=== PATIENT | female | born 1930 | race African-American/Black ===

== ENCOUNTER 2016-12-26 23:53 | Inpatient (IN) | payer BC ==
[~2016-12-26] VITALS: Ht 152.4 cm; Wt 82.1 kg
[2016-12-27] VITALS (7 sets, daily range): BP systolic 141–159; BP diastolic 66–77
[2016-12-27 00:20] LABS: EOSINOPHIL (%) 1.1 % (0-5); EOSINOPHIL COUNT 0.2 K/uL (0-0.3); HEMATOCRIT 30.4 % (36.0-46.0); IMMATURE GRANULOCYTE (%) 1.7 % (0.0-0.7); IMMATURE GRANULOCYTE COUNT 0.3 K/uL; INSTRUMENT ABS NEUTROPHIL CT 11.1 K/uL; LYMPHOCYTE COUNT 3.9 K/uL (1.0-2.8); MCH 31.1 PG (29.0-34.0); MCHC 32.9 G/DL (30.0-36.0); MCV 94.4 FL (83-99); MEAN PLAT.VOLUME 10.4 uM^3 (9.5-12.4); MONOCYTE (%) 4.5 % (3-12); MONOCYTE COUNT 0.7 K/uL (0-0.8); NEUTROPHIL (%) 68.7 % (45-76); NEUTROPHIL COUNT 11.1 K/uL (1.8-6.4); PLATELET COUNT 308 K/uL (156-360); RBC DIS.WIDTH-CV 12.4 % (11.8-14.6); RBC DIS.WIDTH-SD 42.6 % (39-53); RED BLOOD COUNT 3.22 M/uL (3.80-5.20); WHITE BLOOD COUNT 16.2 K/uL (4.1-10.2)
[2016-12-27 00:28] LABS: AMYLASE 70 IU/L (1-118); CHLORIDE 104 mEq/L (99-109); POTASSIUM 4.1 mEq/L (3.7-5.4); SODIUM 143 mEq/L (136-147)
[2016-12-27 00:30] LABS: GLUCOSE 133 mg/dL (70-99)
[2016-12-27 00:31] LABS: ANION GAP 11 MEQ/L (2-14)
[2016-12-27 00:33] LABS: SERUM ETHYL ALCOHOL < 10 mg/dL
[2016-12-27 00:34] LABS: UREA NITROGEN (BUN) 21 mg/dL (9-23)
[2016-12-27 00:36] LABS: GFR ESTIMATE (CALCULATED) 25 mL/min/; LIPASE 21 U/L (1.0-51.0)
[2016-12-27 00:56] LABS: PROTHROMBIN TIME 11.3 SEC (10.2-12.9)
[2016-12-27 00:59] LABS: PTT 28.9 SEC (25-37)
[2016-12-27 13:49] LABS: ANION GAP 10 MEQ/L (2-14); CHLORIDE 106 MEQ/L (99-109); GFR ESTIMATE (CALCULATED) 37 mL/min/; GLUCOSE 126 mg/dL (70-99); SAMPLE HEMOLYSIS CHECK 0; SAMPLE ICTERIC CHECK 0; SAMPLE LIPEMIA CHECK 0; SODIUM 143 MEQ/L (136-147); UREA NITROGEN (BUN) 18 mg/dL (9-23)
[2016-12-27 15:36] LABS: ADD MIUA? YES; BILIRUBIN NEGATIVE; BLOOD SMALL; COLOR YELLOW ((YELLOW)); GLUCOSE (STRIP) NEGATIVE; KETONES NEGATIVE; LEUKOCYTES SMALL; NITRITE NEGATIVE; PROTEIN (STRIP) NEGATIVE; SPECIFIC GRAVITY 1.027 (1.000-1.030); UROBILINOGEN 0.2 MG/DL (0.2-1.0)
[2016-12-27 15:52] LABS: BACTERIA 3+ /HPF; EPITHELIAL CELLS RARE /HPF; MUCUS NONE SEEN /LPF; UCUL ADDED? YES; WHITE BLOOD CELLS 30-40 /HPF (0-5); WHITE BLOOD CELLS CLUMP RARE /HPF (0-5)
[2016-12-27 16:08] LABS: HEMATOCRIT 32.3 % (36.0-46.0); MCH 31.4 PG (29.0-34.0); MCHC 33.4 G/DL (30.0-36.0); MCV 93.9 FL (83-99); RBC DIS.WIDTH-CV 12.7 % (11.8-14.6); RBC DIS.WIDTH-SD 43.5 % (39-53); RED BLOOD COUNT 3.44 M/uL (3.80-5.20); WHITE BLOOD COUNT 13.5 K/uL (4.1-10.2)
[2016-12-27 16:39] LABS: MEAN PLAT.VOLUME 11.5 uM^3 (9.5-12.4); PLAT.SUFFICIENCY ADEQUATE
[2016-12-27 16:44] LABS: PLATELET COUNT 206 K/uL (156-360)
[2016-12-27] MEDS ORDERED: COZAAR25 MG PO (17:58)
[2016-12-27] MEDS ORDERED: KLONOPIN0.5 M1 PO (18:00)
[2016-12-27] MEDS ORDERED: SIMVASTATIN20 MG PO (18:00)
[2016-12-27] MEDS ORDERED: VERAPAMIL HCL240 MG PO (18:01)
[2016-12-27] MEDS ORDERED: HYDROCHLOROTHIA25 MG PO (18:02)
[2016-12-27] MEDS ORDERED: HYDROCODON-ACE1 EAC7 PO (18:03)
[2016-12-27] MEDS ORDERED: LEVOTHYROXINE50 MCG PO (18:04)
[2016-12-28 02:55] VITALS: BP 152/70
[2016-12-28 07:02] LABS: EOSINOPHIL (%) 1.5 % (0-5); EOSINOPHIL COUNT 0.2 K/uL (0-0.3); HEMATOCRIT 26.5 % (36.0-46.0); IMMATURE GRANULOCYTE (%) 0.3 % (0.0-0.7); INSTRUMENT ABS NEUTROPHIL CT 7.8 K/uL; LYMPHOCYTE COUNT 1.5 K/uL (1.0-2.8); MCH 31.5 PG (29.0-34.0); MCHC 33.2 G/DL (30.0-36.0); MEAN PLAT.VOLUME 10.9 uM^3 (9.5-12.4); MONOCYTE (%) 7.6 % (3-12); MONOCYTE COUNT 0.8 K/uL (0-0.8); NEUTROPHIL (%) 75.5 % (45-76); NEUTROPHIL COUNT 7.8 K/uL (1.8-6.4); PLATELET COUNT 234 K/uL (156-360); RBC DIS.WIDTH-CV 12.7 % (11.8-14.6); RBC DIS.WIDTH-SD 43.8 % (39-53); RED BLOOD COUNT 2.79 M/uL (3.80-5.20); WHITE BLOOD COUNT 10.3 K/uL (4.1-10.2)
[2016-12-28 07:12] LABS: ALKALINE PHOSPHATASE 68 IU/L (3-129); ANION GAP 6 MEQ/L (2-14); CHLORIDE 108 MEQ/L (99-109); GFR ESTIMATE (CALCULATED) 40 mL/min/; GLUCOSE 97 mg/dL (70-99); POTASSIUM 3.8 MEQ/L (3.7-5.4); SAMPLE HEMOLYSIS CHECK 0; SAMPLE ICTERIC CHECK 0; SAMPLE LIPEMIA CHECK 0; SODIUM 144 MEQ/L (136-147); TOTAL BILIRUBIN 0.3 MG/DL (0.0-1.0); UREA NITROGEN (BUN) 14 mg/dL (9-23)
[2016-12-28 07:45] VITALS: BP 162/73
[2016-12-28 11:36] VITALS: BP 158/76
[2016-12-28 15:35] VITALS: BP 158/76
[2016-12-28 22:02] VITALS: BP 163/70
[2016-12-28 23:40] VITALS: BP 155/72
[2016-12-29 04:19] VITALS: BP 171/84
[2016-12-29 07:02] LABS: EOSINOPHIL (%) 0.4 % (0-5); EOSINOPHIL COUNT 0.1 K/uL (0-0.3); HEMATOCRIT 26.6 % (36.0-46.0); IMMATURE GRANULOCYTE (%) 0.5 % (0.0-0.7); IMMATURE GRANULOCYTE COUNT 0.1 K/uL; INSTRUMENT ABS NEUTROPHIL CT 10.9 K/uL; LYMPHOCYTE COUNT 1.4 K/uL (1.0-2.8); MCH 31.5 PG (29.0-34.0); MCHC 32.7 G/DL (30.0-36.0); MCV 96.4 FL (83-99); MONOCYTE (%) 6.9 % (3-12); MONOCYTE COUNT 0.9 K/uL (0-0.8); NEUTROPHIL (%) 81.5 % (45-76); NEUTROPHIL COUNT 10.9 K/uL (1.8-6.4); PLATELET COUNT 226 K/uL (156-360); RBC DIS.WIDTH-CV 12.7 % (11.8-14.6); RBC DIS.WIDTH-SD 43.8 % (39-53); RED BLOOD COUNT 2.76 M/uL (3.80-5.20); WHITE BLOOD COUNT 13.4 K/uL (4.1-10.2)
[2016-12-29 07:31] LABS: ANION GAP 11 MEQ/L (2-14); CHLORIDE 110 MEQ/L (99-109); GFR ESTIMATE (CALCULATED) 46 mL/min/; GLUCOSE 98 mg/dL (70-99); POTASSIUM 3.9 MEQ/L (3.7-5.4); SAMPLE HEMOLYSIS CHECK 0; SAMPLE ICTERIC CHECK 0; SAMPLE LIPEMIA CHECK 0; SODIUM 146 MEQ/L (136-147); UREA NITROGEN (BUN) 13 mg/dL (9-23)
[2016-12-29] MEDS ORDERED: REQUIP1 MG PO (11:46)
[2016-12-29 12:30] VITALS: BP 164/73
[2016-12-29 16:42] VITALS: BP 177/78
[2016-12-29 19:24] VITALS: BP 155/67
[2016-12-29 23:14] VITALS: BP 148/64
[2016-12-30 03:40] VITALS: BP 127/68
[2016-12-30 07:37] VITALS: BP 139/63
[2016-12-30 07:46] LABS: HEMATOCRIT 26.4 % (36.0-46.0); MCH 32.1 PG (29.0-34.0); MCHC 33.7 G/DL (30.0-36.0); MCV 95.3 FL (83-99); MEAN PLAT.VOLUME 11.1 uM^3 (9.5-12.4); PLATELET COUNT 235 K/uL (156-360); RBC DIS.WIDTH-CV 12.8 % (11.8-14.6); RBC DIS.WIDTH-SD 44.1 % (39-53); RED BLOOD COUNT 2.77 M/uL (3.80-5.20); WHITE BLOOD COUNT 13.9 K/uL (4.1-10.2)
[2016-12-30 07:52] LABS: ALKALINE PHOSPHATASE 66 IU/L (3-129); ANION GAP 10 MEQ/L (2-14); CHLORIDE 107 MEQ/L (99-109); GFR ESTIMATE (CALCULATED) 50 mL/min/; GLUCOSE 124 mg/dL (70-99); SAMPLE HEMOLYSIS CHECK 0; SAMPLE ICTERIC CHECK 0; SAMPLE LIPEMIA CHECK 0; SODIUM 143 MEQ/L (136-147); UREA NITROGEN (BUN) 14 mg/dL (9-23)
[2016-12-30 07:54] LABS: TOTAL BILIRUBIN 0.4 MG/DL (0.0-1.0)
[2016-12-30 11:05] VITALS: BP 134/67
[2016-12-30 16:14] VITALS: BP 142/65
[2016-12-30 19:38] VITALS: BP 175/78
[2016-12-30 23:42] VITALS: BP 171/73
[2016-12-31 04:38] VITALS: BP 144/68
[2016-12-31 07:15] LABS: ANION GAP 8 MEQ/L (2-14); CHLORIDE 105 MEQ/L (99-109); GFR ESTIMATE (CALCULATED) 50 mL/min/; GLUCOSE 118 mg/dL (70-99); POTASSIUM 4.2 MEQ/L (3.7-5.4); SAMPLE HEMOLYSIS CHECK 0; SAMPLE ICTERIC CHECK 0; SAMPLE LIPEMIA CHECK 0; SODIUM 141 MEQ/L (136-147); UREA NITROGEN (BUN) 17 mg/dL (9-23)
[2016-12-31 08:33] VITALS: BP 151/71
[2016-12-31 11:44] VITALS: BP 160/73
[2016-12-31 17:05] VITALS: BP 151/62
[2016-12-31 20:11] VITALS: BP 165/73
[2017-01-01 00:07] VITALS: BP 147/65
[2017-01-01 03:07] VITALS: BP 146/67
[2017-01-01 07:18] VITALS: BP 135/63
[2017-01-01 10:59] VITALS: BP 152/70
[2017-01-01 15:23] VITALS: BP 140/62
[2017-01-01 18:55] VITALS: BP 148/68
[2017-01-02] VITALS (7 sets, daily range): BP systolic 145–191; BP diastolic 69–78
[2017-01-03] VITALS (7 sets, daily range): BP systolic 137–190; BP diastolic 56–85
[2017-01-03 13:17] LABS: ALKALINE PHOSPHATASE 75 IU/L (3-129); ANION GAP 11 MEQ/L (2-14); CHLORIDE 101 MEQ/L (99-109); GFR ESTIMATE (CALCULATED) 50 mL/min/; GLUCOSE 123 mg/dL (70-99); MAGNESIUM 1.8 mg/dl (1.3-2.7); SAMPLE HEMOLYSIS CHECK 0; SAMPLE ICTERIC CHECK 0; SAMPLE LIPEMIA CHECK 0; SODIUM 141 MEQ/L (136-147); UREA NITROGEN (BUN) 23 mg/dL (9-23)
[2017-01-03 13:18] LABS: BASOPHIL COUNT 0.1 K/uL (0-0.1); EOSINOPHIL (%) 2.2 % (0-5); EOSINOPHIL COUNT 0.3 K/uL (0-0.3); IMMATURE GRANULOCYTE (%) 1.5 % (0.0-0.7); IMMATURE GRANULOCYTE COUNT 0.2 K/uL; INSTRUMENT ABS NEUTROPHIL CT 9.9 K/uL; LYMPHOCYTE COUNT 2.2 K/uL (1.0-2.8); MCH 31.5 PG (29.0-34.0); MCHC 33.3 G/DL (30.0-36.0); MCV 94.4 FL (83-99); MEAN PLAT.VOLUME 9.8 uM^3 (9.5-12.4); MONOCYTE (%) 8.6 % (3-12); MONOCYTE COUNT 1.2 K/uL (0-0.8); NEUTROPHIL (%) 71.2 % (45-76); NEUTROPHIL COUNT 9.9 K/uL (1.8-6.4); NRBC (%) 0.1 /100 WBC (0-0); PLATELET COUNT 410 K/uL (156-360); RBC DIS.WIDTH-CV 13.1 % (11.8-14.6); RBC DIS.WIDTH-SD 44.2 % (39-53); RED BLOOD COUNT 2.86 M/uL (3.80-5.20); WHITE BLOOD COUNT 13.9 K/uL (4.1-10.2)
[2017-01-03 13:22] LABS: TOTAL BILIRUBIN 0.7 MG/DL (0.0-1.0)
[2017-01-04 04:01] VITALS: BP 165/72
[2017-01-04 07:05] VITALS: BP 160/74
[2017-01-04 11:12] VITALS: BP 177/79
[2017-01-04 15:06] VITALS: BP 169/77
[2017-01-04 19:17] VITALS: BP 152/69
[2017-01-04 23:46] VITALS: BP 137/62
[2017-01-05 03:05] LABS: ADD MIUA? YES; BILIRUBIN NEGATIVE; BLOOD MODERATE; COLOR YELLOW ((YELLOW)); GLUCOSE (STRIP) NEGATIVE; KETONES NEGATIVE; LEUKOCYTES LARGE; NITRITE POSITIVE; PROTEIN (STRIP) 100; SPECIFIC GRAVITY 1.011 (1.000-1.030); UROBILINOGEN 0.2 MG/DL (0.2-1.0)
[2017-01-05 03:20] LABS: BACTERIA 2+ /HPF; CASTS NONE SEEN /LPF; CRYSTALS NONE SEEN; EPITHELIAL CELLS NONE SEEN /HPF; MUCUS NONE SEEN /LPF; WHITE BLOOD CELLS TNTC /HPF (0-5)
[2017-01-05 03:42] VITALS: BP 156/67
[2017-01-05 07:14] VITALS: BP 161/73
[2017-01-05 09:40] LABS: POC NON-PRINT COM 1 ND
[2017-01-05 11:12] VITALS: BP 132/63
[2017-01-05 15:04] VITALS: BP 133/60
[2017-01-05 19:39] VITALS: BP 174/74
[2017-01-05 23:26] VITALS: BP 119/60
[2017-01-06 04:41] VITALS: BP 136/60
[2017-01-06 07:47] VITALS: BP 136/63
[2017-01-06] MEDS ORDERED: PERCOCET 5/31 TABLET PO (10:17)
[2017-01-06 11:58] VITALS: BP 159/63
[2017-01-06] MEDS ORDERED: CIPROFLOXACIN500 M1 PO (13:09)
== END 2017-01-06 13:40 | DRG 958 ==
LOC: TRA 23:53 → EDOF 12-27 02:14 → 3EAST 12-27 02:14 → ENRESERV 12-27 02:16 → 3EAST 12-27 03:02
PROVIDERS: Emergency Medicine; Hospitalist; Physician Assistant Medical; Surgery
PROC: 0PS304Z Reposition Cervical Vertebra with Internal Fixation Device, Open Approach (ICD-10-PCS; principal; 2016-12-28)
DX: S12.110A Anterior displaced Type II dens fracture, initial encounter for closed fracture (principal); S06.4X9A Epidural hemorrhage with loss of consciousness of unspecified duration, initial encounter; S22.41XA Multiple fractures of ribs, right side, initial encounter for closed fracture; S12.000A Unspecified displaced fracture of first cervical vertebra, initial encounter for closed fracture; S32.10XA Unspecified fracture of sacrum, initial encounter for closed fracture; M48.02 Spinal stenosis, cervical region; N17.9 Acute kidney failure, unspecified; S14.129A Central cord syndrome at unspecified level of cervical spinal cord, initial encounter; E78.00 Pure hypercholesterolemia, unspecified; M19.90 Unspecified osteoarthritis, unspecified site; R01.1 Cardiac murmur, unspecified; E78.5 Hyperlipidemia, unspecified; N39.0 Urinary tract infection, site not specified; D64.9 Anemia, unspecified; I10 Essential (primary) hypertension; R20.2 Paresthesia of skin; M54.9 Dorsalgia, unspecified; W10.9XXA Fall (on) (from) unspecified stairs and steps, initial encounter; R51 Headache; R20.0 Anesthesia of skin; M47.812 Spondylosis without myelopathy or radiculopathy, cervical region; M51.36 Other intervertebral disc degeneration, lumbar region; K64.9 Unspecified hemorrhoids; M79.601 Pain in right arm; M79.602 Pain in left arm; B96.1 Klebsiella pneumoniae [K. pneumoniae] as the cause of diseases classified elsewhere; M51.34 Other intervertebral disc degeneration, thoracic region; E03.9 Hypothyroidism, unspecified; Y92.009 Unspecified place in unspecified non-institutional (private) residence as the place of occurrence of the external cause; Z90.710 Acquired absence of both cervix and uterus; Y93.9 Activity, unspecified; Z68.35 Body mass index [BMI] 35.0-35.9, adult
CPT/HCPCS: 70450; 71260; 72040; 72125; 72129; 72132; 72141; 73130; 74177; 76000; 80048; 80048 91; 80053; 81003; 82150; 82272; 83690; 83735; 84100; 84443; 85025; 85027; 85610; 85730; 86850; 86870; 86900; 86901; 86905; 86920; 87077; 87086; 87186; 92523 GN; 93005; 94799; 97530 GO; 97530 GP; 99281; 99285; C1713; G0480; J0131; J0330; J0360; J0690; J0696; J1170; J2405; J2710; J3010; J7030; J7050; J7120

== ENCOUNTER 2017-01-06 12:01 | Inpatient (IN) | payer BC ==
[~2017-01-06] VITALS: Ht 152.4 cm; Wt 71.3 kg
[~2017-01-06 12:01] MED LIST: COZAAR25 MG PO; HYDROCHLOROTHIA25 MG PO; HYDROCODON-ACE1 EAC7 PO; KLONOPIN0.5 M1 PO; LEVOTHYROXINE50 MCG PO; PERCOCET 5/31 TABLET PO; REQUIP1 MG PO; SIMVASTATIN20 MG PO; VERAPAMIL HCL240 MG PO
[2017-01-06] MEDS ORDERED: CIPROFLOXACIN500 M1 PO (13:09)
[2017-01-06 13:50] VITALS: BP 145/67
[2017-01-06 15:44] VITALS: BP 160/71
[2017-01-07 04:54] VITALS: BP 152/67
[2017-01-07 06:54] LABS: HEMATOCRIT 26.9 % (36.0-46.0); MCH 31.4 PG (29.0-34.0); MCHC 32.7 G/DL (30.0-36.0); MCV 96.1 FL (83-99); MEAN PLAT.VOLUME 9.5 uM^3 (9.5-12.4); PLATELET COUNT 475 K/uL (156-360); RBC DIS.WIDTH-CV 13.6 % (11.8-14.6); RBC DIS.WIDTH-SD 46.9 % (39-53); WHITE BLOOD COUNT 17.2 K/uL (4.1-10.2)
[2017-01-07 07:19] LABS: ALKALINE PHOSPHATASE 86 IU/L (3-129); ANION GAP 10 MEQ/L (2-14); CHLORIDE 97 MEQ/L (99-109); GLUCOSE 116 mg/dL (70-99); POTASSIUM 4.4 MEQ/L (3.7-5.4); SAMPLE HEMOLYSIS CHECK 0; SAMPLE ICTERIC CHECK 0; SAMPLE LIPEMIA CHECK 0; SODIUM 136 MEQ/L (136-147); UREA NITROGEN (BUN) 33 mg/dL (9-23)
[2017-01-07 07:20] LABS: GFR ESTIMATE (CALCULATED) 27 mL/min/; TOTAL BILIRUBIN 0.5 MG/DL (0.0-1.0)
[2017-01-08 04:57] VITALS: BP 135/63
[2017-01-08 07:48] LABS: ANION GAP 9 MEQ/L (2-14); CHLORIDE 99 MEQ/L (99-109); GFR ESTIMATE (CALCULATED) 31 mL/min/; GLUCOSE 118 mg/dL (70-99); POTASSIUM 4.2 MEQ/L (3.7-5.4); SAMPLE HEMOLYSIS CHECK 0; SAMPLE ICTERIC CHECK 0; SAMPLE LIPEMIA CHECK 0; SODIUM 137 MEQ/L (136-147); UREA NITROGEN (BUN) 36 mg/dL (9-23)
[2017-01-08 14:55] LABS: ADD MIUA? YES; BILIRUBIN NEGATIVE; BLOOD NEGATIVE; COLOR YELLOW ((YELLOW)); GLUCOSE (STRIP) NEGATIVE; KETONES NEGATIVE; LEUKOCYTES LARGE; NITRITE NEGATIVE; PROTEIN (STRIP) NEGATIVE; SPECIFIC GRAVITY 1.011 (1.000-1.030); UROBILINOGEN 0.2 MG/DL (0.2-1.0)
[2017-01-08 15:13] LABS: BACTERIA RARE /HPF; EPITHELIAL CELLS RARE /HPF; HYALINE CASTS 0-5 /LPF; MUCUS NONE SEEN /LPF; RED BLOOD CELLS 0-5 /HPF (0-5); UCUL ADDED? YES; UNCLASSIFIED CASTS 0-5 /LPF; WHITE BLOOD CELLS TNTC /HPF (0-5); WHITE BLOOD CELLS CLUMP MANY /HPF (0-5)
[2017-01-08 15:15] VITALS: BP 152/70
[2017-01-09 05:38] VITALS: BP 139/63
[2017-01-09 07:00] LABS: EOSINOPHIL (%) 3.2 % (0-5); EOSINOPHIL COUNT 0.5 K/uL (0-0.3); HEMATOCRIT 26.5 % (36.0-46.0); IMMATURE GRANULOCYTE (%) 1.8 % (0.0-0.7); IMMATURE GRANULOCYTE COUNT 0.3 K/uL; LYMPHOCYTE COUNT 2.3 K/uL (1.0-2.8); MCH 30.9 PG (29.0-34.0); MCHC 32.1 G/DL (30.0-36.0); MCV 96.4 FL (83-99); MEAN PLAT.VOLUME 9.6 uM^3 (9.5-12.4); MONOCYTE (%) 8.4 % (3-12); MONOCYTE COUNT 1.3 K/uL (0-0.8); NEUTROPHIL (%) 71.7 % (45-76); PLATELET COUNT 495 K/uL (156-360); RBC DIS.WIDTH-CV 13.4 % (11.8-14.6); RBC DIS.WIDTH-SD 46.3 % (39-53); RED BLOOD COUNT 2.75 M/uL (3.80-5.20); WHITE BLOOD COUNT 15.4 K/uL (4.1-10.2)
[2017-01-09 07:22] LABS: ANION GAP 9 MEQ/L (2-14); CHLORIDE 105 MEQ/L (99-109); GFR ESTIMATE (CALCULATED) 35 mL/min/; GLUCOSE 103 mg/dL (70-99); POTASSIUM 4.1 MEQ/L (3.7-5.4); SAMPLE HEMOLYSIS CHECK 0; SAMPLE ICTERIC CHECK 0; SAMPLE LIPEMIA CHECK 0; SODIUM 141 MEQ/L (136-147); UREA NITROGEN (BUN) 31 mg/dL (9-23)
[2017-01-09 15:44] VITALS: BP 173/74
[2017-01-09 18:11] VITALS: BP 152/73
[2017-01-10 04:59] VITALS: BP 149/67
[2017-01-10 06:10] LABS: ANION GAP 9 MEQ/L (2-14); CHLORIDE 103 MEQ/L (99-109); GFR ESTIMATE (CALCULATED) 37 mL/min/; GLUCOSE 96 mg/dL (70-99); POTASSIUM 4.1 MEQ/L (3.7-5.4); SAMPLE HEMOLYSIS CHECK 0; SAMPLE ICTERIC CHECK 0; SAMPLE LIPEMIA CHECK 0; SODIUM 139 MEQ/L (136-147); UREA NITROGEN (BUN) 25 mg/dL (9-23)
[2017-01-10 15:03] LABS: ADD MIUA? NO; BILIRUBIN NEGATIVE; BLOOD NEGATIVE; COLOR YELLOW ((YELLOW)); GLUCOSE (STRIP) NEGATIVE; KETONES NEGATIVE; LEUKOCYTES NEGATIVE; NITRITE NEGATIVE; PROTEIN (STRIP) NEGATIVE; UROBILINOGEN 0.2 MG/DL (0.2-1.0)
[2017-01-10 15:26] VITALS: BP 156/69
[2017-01-11 06:33] VITALS: BP 139/65
[2017-01-11 15:16] VITALS: BP 128/60
[2017-01-12 06:06] VITALS: BP 153/70
[2017-01-12 07:06] LABS: HEMATOCRIT 27.7 % (36.0-46.0); MCH 30.3 PG (29.0-34.0); MCHC 31.4 G/DL (30.0-36.0); MCV 96.5 FL (83-99); MEAN PLAT.VOLUME 9.6 uM^3 (9.5-12.4); PLATELET COUNT 555 K/uL (156-360); RBC DIS.WIDTH-SD 49.1 % (39-53); RED BLOOD COUNT 2.87 M/uL (3.80-5.20); WHITE BLOOD COUNT 13.2 K/uL (4.1-10.2)
[2017-01-12 07:27] LABS: ANION GAP 10 MEQ/L (2-14); CHLORIDE 102 MEQ/L (99-109); GFR ESTIMATE (CALCULATED) 37 mL/min/; GLUCOSE 102 mg/dL (70-99); SAMPLE HEMOLYSIS CHECK 0; SAMPLE ICTERIC CHECK 0; SAMPLE LIPEMIA CHECK 0; SODIUM 138 MEQ/L (136-147); UREA NITROGEN (BUN) 25 mg/dL (9-23)
[2017-01-12 16:00] VITALS: BP 143/64
[2017-01-13 05:29] VITALS: BP 148/81
[2017-01-13 15:49] VITALS: BP 156/68
[2017-01-14 04:56] VITALS: BP 147/66
[2017-01-14 15:30] VITALS: BP 142/60
[2017-01-15 05:08] VITALS: BP 125/59
[2017-01-15 05:49] LABS: HEMATOCRIT 27.1 % (36.0-46.0); MCH 31.5 PG (29.0-34.0); MCHC 32.1 G/DL (30.0-36.0); MCV 98.2 FL (83-99); MEAN PLAT.VOLUME 9.8 uM^3 (9.5-12.4); PLATELET COUNT 514 K/uL (156-360); RBC DIS.WIDTH-CV 14.4 % (11.8-14.6); RBC DIS.WIDTH-SD 51.4 % (39-53); RED BLOOD COUNT 2.76 M/uL (3.80-5.20); WHITE BLOOD COUNT 8.8 K/uL (4.1-10.2)
[2017-01-15 06:02] LABS: ADD MIUA? YES; BILIRUBIN NEGATIVE; BLOOD NEGATIVE; COLOR YELLOW ((YELLOW)); GLUCOSE (STRIP) NEGATIVE; KETONES NEGATIVE; LEUKOCYTES TRACE; NITRITE NEGATIVE; PROTEIN (STRIP) NEGATIVE; SPECIFIC GRAVITY 1.014 (1.000-1.030); UROBILINOGEN 0.2 MG/DL (0.2-1.0)
[2017-01-15 06:14] LABS: BACTERIA NONE SEEN /HPF; EPITHELIAL CELLS RARE /HPF; HYALINE CASTS 0-5 /LPF; MUCUS TRACE /LPF; RED BLOOD CELLS 0-5 /HPF (0-5)
[2017-01-15 06:25] LABS: ANION GAP 9 MEQ/L (2-14); CHLORIDE 107 MEQ/L (99-109); GFR ESTIMATE (CALCULATED) 40 mL/min/; GLUCOSE 111 mg/dL (70-99); POTASSIUM 4.3 MEQ/L (3.7-5.4); SAMPLE HEMOLYSIS CHECK 0; SAMPLE ICTERIC CHECK 0; SAMPLE LIPEMIA CHECK 0; SODIUM 142 MEQ/L (136-147); UREA NITROGEN (BUN) 18 mg/dL (9-23)
[2017-01-15 15:31] VITALS: BP 129/60
[2017-01-16 05:54] VITALS: BP 118/59
[2017-01-16 15:36] VITALS: BP 149/62
[2017-01-17 05:19] VITALS: BP 123/60
[2017-01-17 15:18] VITALS: BP 143/65
[2017-01-18 05:21] VITALS: BP 156/69
[2017-01-18 16:00] VITALS: BP 129/58
[2017-01-19 05:49] VITALS: BP 127/62
[2017-01-19 15:14] VITALS: BP 144/65
[2017-01-20 05:42] LABS: HEMATOCRIT 26.3 % (36.0-46.0); MCH 31.5 PG (29.0-34.0); MCHC 31.9 G/DL (30.0-36.0); MCV 98.5 FL (83-99); MEAN PLAT.VOLUME 10.3 uM^3 (9.5-12.4); PLATELET COUNT 433 K/uL (156-360); RBC DIS.WIDTH-CV 14.4 % (11.8-14.6); RBC DIS.WIDTH-SD 51.8 % (39-53); RED BLOOD COUNT 2.67 M/uL (3.80-5.20); WHITE BLOOD COUNT 7.7 K/uL (4.1-10.2)
[2017-01-20 05:46] VITALS: BP 115/57
[2017-01-20 06:01] LABS: ALKALINE PHOSPHATASE 80 IU/L (3-129); ANION GAP 9 MEQ/L (2-14); CHLORIDE 108 MEQ/L (99-109); GFR ESTIMATE (CALCULATED) 43 mL/min/; GLUCOSE 92 mg/dL (70-99); POTASSIUM 4.2 MEQ/L (3.7-5.4); SAMPLE HEMOLYSIS CHECK 0; SAMPLE ICTERIC CHECK 0; SAMPLE LIPEMIA CHECK 0; SODIUM 142 MEQ/L (136-147); TOTAL BILIRUBIN 0.4 MG/DL (0.0-1.0); UREA NITROGEN (BUN) 17 mg/dL (9-23)
[2017-01-20 15:08] VITALS: BP 124/60
[2017-01-20] MEDS ORDERED: SENNA PLUS TAB1 EACH PO (15:42)
[2017-01-20] MEDS ORDERED: VERAPAMIL HCL240 MG PO (15:42)
[2017-01-20] MEDS ORDERED: POLYETHYLENE GL17 GM PO (15:42)
[2017-01-20] MEDS ORDERED: ANUCORT-HC25 MG PR (15:42)
[2017-01-20] MEDS ORDERED: APRESOLINE25 MG PO (15:42)
[2017-01-20] MEDS ORDERED: ACETAMINOPHEN-1 EAC1 PO (15:42)
[2017-01-21 04:50] VITALS: BP 112/57
== END 2017-01-21 14:36 | disposition home health service (06) | DRG 560 ==
LOC: 3WEST 12:01 → ENPENDDIS 01-21 → 3WEST 01-21 14:36
PROVIDERS: Family Medicine; Internal Medicine Nephrology; Physical Medicine & Rehabilitation Pain Medicine
PROC: F07M0ZZ Range of Motion and Joint Mobility Treatment of Musculoskeletal System - Whole Body (ICD-10-PCS; principal; 2017-01-06)
DX: S12.000D Unspecified displaced fracture of first cervical vertebra, subsequent encounter for fracture with routine healing (principal); S22.49XD Multiple fractures of ribs, unspecified side, subsequent encounter for fracture with routine healing; T50.2X5A Adverse effect of carbonic-anhydrase inhibitors, benzothiadiazides and other diuretics, initial encounter; I12.9 Hypertensive chronic kidney disease with stage 1 through stage 4 chronic kidney disease, or unspecified chronic kidney disease; T46.5X5A Adverse effect of other antihypertensive drugs, initial encounter; E66.9 Obesity, unspecified; E03.9 Hypothyroidism, unspecified; T39.315A Adverse effect of propionic acid derivatives, initial encounter; G89.18 Other acute postprocedural pain; R26.9 Unspecified abnormalities of gait and mobility; D62 Acute posthemorrhagic anemia; M54.2 Cervicalgia; S12.110D Anterior displaced Type II dens fracture, subsequent encounter for fracture with routine healing; E78.5 Hyperlipidemia, unspecified; N39.0 Urinary tract infection, site not specified; B96.1 Klebsiella pneumoniae [K. pneumoniae] as the cause of diseases classified elsewhere; M51.36 Other intervertebral disc degeneration, lumbar region; M48.54XD Collapsed vertebra, not elsewhere classified, thoracic region, subsequent encounter for fracture with routine healing; N18.9 Chronic kidney disease, unspecified; N17.9 Acute kidney failure, unspecified; M51.34 Other intervertebral disc degeneration, thoracic region; E86.0 Dehydration; G89.29 Other chronic pain; R20.2 Paresthesia of skin; R32 Unspecified urinary incontinence; Z90.710 Acquired absence of both cervix and uterus; Z68.30 Body mass index [BMI] 30.0-30.9, adult; Y92.9 Unspecified place or not applicable
CPT/HCPCS: 70450; 76770; 80048; 80053; 80069; 81003; 82570; 84156; 84550; 85025; 85027; 87086; 97110 GO; 97530 GP; J1650; J7030